=== PATIENT | female | born 1950 | race Caucasian/White ===

== ENCOUNTER 2020-06-15 10:40 | Emergency (ER) | payer MEDICARE, SELFPAY ==
--- NOTE | ~2020-06-15 | XR_ITS ---
EXAMINATION: XR chest 2V 06/15/2020 11:22 INDICATION: Wheezing. PROCEDURE: 2 view chest COMPARISON: 07/03/2017 FINDINGS: There is right lower lobe airspace disease with obscuration of the diaphragm posteriorly on the lateral view. The cardiomediastinal silhouette is within normal limits. There are no pleural ef fusions. There is no pneumothorax suspected. IMPRESSION: 1: Subtle right lower lobe airspace disease, atelectasis versus pneumonia. Reviewed, dictated and finalized at location A. L [facility]
[2020-06-15 11:00] VITALS: BP 141/60; PULSE 69; RESP 16; TEMP 36.5; O2SAT 98
--- NOTE | 2020-06-15 11:11 | ECG_ITS ---
Measurements Intervals [place] Rate: 65 P: 22 CO: 127 QRS: 6 QRSD: 84 T: 8 QT: 379 QTc: 396 Interpretive Statements SINUS RHYTHM BORDERLINE T WAVE ABNORMALITY- INFERIOR LEADS BASELINE ARTIFACT- II, III, AVF BORDERLINE ECG Electronically Signed On 06-15-2020 16:33:23 [employer]OT[employer] TENDER by Baljeet Velasco D.O.
--- NOTE | 2020-06-15 11:12 | ED.GENADULT ---
HPI - General Adult General Chief complaint: Upper Respiratory Infection Stated complaint: chocked on food now lungs hurt Source: patient Mode of arrival: ambulatory Limitations: no limitations History of Present Illness HPI narrative: Patient presents for evaluation of chest pain. She indicates that she was eating vegetables 2 nights ago, when she began to choke. She states eventually she was able to swallow the vegetables. However she has noted some discomfort in her throat and chest since that time. Pain progressively worsened yesterday. She states she is a sharp pain in the right anterolateral aspect of her neck, particularly with deep inspiration. She rates his pain as 8 on a scale of 1-10. She also has pleuritic type of chest pain bilaterally, also noted with inspiration. She denies any shortness of breath but has had a productive cough of clear sputum. Both she and her tested positive for Covid back in May. She states that they both received notifications in mid-May allowing them to resume their normal activities, no longer requiring quarantine. Related Data Home Medications Medication Instructions Recorded Confirmed alendronate [Fosamax] mg PO 06/15/20 Allergies Allergy/AdvReac Type Severity Reaction Status Date / Time No Known Allergies Allergy Unknown Unverified 10/12/18 17:41 Review of Systems Review of Systems: Narrative: CONSTITUTIONAL: Denies fever, chills, or sweats. EYES: Denies visual changes, redness, or discharge. ENT: Denies rhinorrhea, congestion, or otalgia. Reports sore throat, particularly with inspiration. CARDIOVASCULAR: Reports chest pain. Denies palpitations, or edema. RESPIRATORY: Denies cough or dyspnea. GASTROINTESTINAL: Denies abdominal pain, nausea, vomiting, or diarrhea. GENITOURINARY: Denies dysuria or hematuria. SKIN: Denies rash or itching. MUSCULOSKELETAL: Denies back pain, joint pain, or myalgia. NEUROLOGIC: Denies headache, numbness, dizziness, or weakness. PSYCHIATRIC: Denies anxiety or depression. [facility] Past Medical History Medical History History of ectopic Osteoporosis Surgical History Surgical History H/O oophorectomy H/O tubal ligation Family History Family History Father Atrial fibrillation CKD (chronic kidney disease) Mother Hypertension Social History Social History Smoking status: Former smoker Alcohol intake: current Drinks per week: 7 Alcohol use details: 1 glass of wine per night Substance use: never Living arrangements: with family Gender identity (if verbalized by the patient): Female Sexual Orientation (if Verbalized by the Patient): Straight or Heterosexual Exam Narrative: Exam Narrative: GENERAL: Well-appearing, well-nourished, and in no acute distress. HEAD: Normocephalic, atraumatic. EYES: PERRLA and EOMI. ENT: Nares clear, no rhinorrhea or epistaxis. Mucous membranes moist. Oropharynx without tonsillar hypertrophy exudate or other lesions. Bilateral TMs pearly barron nonbulging NECK: Supple. No adenopathy or masses. No carotid bruits or JVD CHEST:Inspiratory wheezing in RLL. No other adventitious lung sounds present in other jung. No respiratory distress. No wheezes rales or rhonchi HEART: Regular rate and rhythm. No murmur heard. Normal peripheral pulses. ABDOMEN: Soft, nontender, nondistended, normal active bowel sounds. EXTREMITIES: Normal range of motion. No edema. SKIN: Warm, dry, no rash. NEURO: No focal deficits. Alert and oriented x3. PSYCH: Normal mood and affect. Course Course Emergency Course: This is a 70-year-old female who presents with cough and chest pain after recently choking on some vegetables. Her saturations were normal.
--- NOTE | 2020-06-15 11:25 | PC.NURSE ---
ECG and CXR complete
== END 2020-06-15 12:24 | disposition home or self-care (01) ==
PROVIDERS: Emergency Provider Nurse Practitioner
DX: J69.0 Pneumonitis due to inhalation of food and vomit (principal); Z87.891 Personal history of nicotine dependence; M81.0 Age-related osteoporosis without current pathological fracture; Z86.16 Personal history of COVID-19
CPT/HCPCS: 71046; 93005; 99213; G0463

== ENCOUNTER 2021-09-17 17:15 | Emergency (ER) | payer MEDICARE, SELFPAY ==
--- NOTE | ~2021-09-17 | XR_ITS ---
XR wrist RT min 3V DATE: 09/17/2021 17:38 INDICATION: Fall on hyperextended wrist on 09/17/2021. Lateral wrist pain. TECHNIQUE: 4 views COMPARISON: None FINDINGS: There is osteoarthritic change at the radiocarpal, triscaphe and first carpometacarpal join ts in addition to the second metacarpophalangeal and first and second distal fifth interphalangeal sylvia ints. IMPRESSION: Polyarticular osteoarthritis No recent fracture or dislocation is detected Reviewed, dictated and finalized at location A.
[2021-09-17 17:20] VITALS: BP 137/65; PULSE 66; RESP 20; TEMP 36.6; O2SAT 98
--- NOTE | 2021-09-17 17:22 | ED.UPPEXIN ---
HPI - Extremity Injury (Upper) General Chief Complaint: Extremity Injury, Upper Stated Complaint: right wrist injury Time Seen by Provider: 09/17/21 17:34 Source: patient and RN notes reviewed Mode of arrival: ambulatory Limitations: no limitations History of Present Illness HPI narrative: 71-year-old female presents with concern for right wrist injury. Reports 230s afternoon she was doing yard work and tripped and fell forward catching herself with her wrist. Reports since then she has had radial wrist pain, worsening pain with palpation and range of motion. She reports she used ice right away and ibuprofen. She denies broken skin, redness, rash, bruising. She denies decreased station, strength and range of motion of the digits. MD complaint: injury to: right and wrist Related Data Home Medications Medication Instructions Recorded Confirmed No Home Medications 09/17/21 09/17/21 Allergies Allergy/AdvReac Type Severity Reaction Status Date / Time No Known Allergies Allergy Unknown Unverified 10/12/18 17:41 Review of Systems Review of Systems: CONSTITUTIONAL: Denies malaise, chills, sweats, or fever. CARDIOVASCULAR: Denies chest pain, palpitations, or edema. RESPIRATORY: Denies cough or dyspnea. SKIN: Denies rash or itching, bruising, redness MUSCULOSKELETAL: Reports right wrist swelling, pain NEUROLOGIC: Denies numbness, weakness All systems reviewed & are unremarkable except as noted in HPI and below PMFSH Past Medical History Medical History History of ectopic Osteoporosis Surgical History Surgical History H/O oophorectomy H/O tubal ligation Family History Family History Father Atrial fibrillation CKD (chronic kidney disease) Mother Hypertension Social History Social History Smoking status: Former smoker Alcohol intake: current Drinks per week: 7 Alcohol use details: 1 glass of wine per night Substance use: never Gender identity (if verbalized by the patient): Female Sexual Orientation (if Verbalized by the Patient): Straight or Heterosexual Comments At time of signature, agree with nursing past medical, surgical, social and family history. There is no relevant family history pertinent to the presenting complaint Exam Narrative: GENERAL: Well-appearing, well-nourished, and in no acute distress. HEAD: Normocephalic, atraumatic. EYES: PERRLA, conjunctivae clear NECK: Supple. CHEST: Speaks in full sentences. No respiratory distress. HEART: Regular rate and rhythm. Normal and equal peripheral pulses. EXTREMITIES: Right wrist, hand, digits have normal strength and sensation, normal range of motion. No edema or ecchymosis. 5/5 strength with digit flexion and extension. Normal sensation with sensitivity to light touch and pain. Radial tenderness. No open wounds, no skin tenting, no devitalized tissue or atrophy, no trophic changes, no obvious deformity, alignment normal, nearby joints and structures intact. Distal pulses palpable and equal bilaterally, skin warm, dry, pink. Capillary refill less than 3 seconds. SKIN: Warm, dry, no rash. NEURO: Alert and oriented x3. PSYCH: Normal mood and affect Course Course Emergency Course: Patient is aware of diagnosis, understands and agrees to treatment plan. Anticipatory guidance given. Patient agrees to follow-up as directed and is aware of reasons to seek care at the emergency department. Portions of this record may have been created with voice recognition software Level of Care: Express Care Visit Vital Signs Vital signs: Reviewed. MDM - Extremity Injury (Upper) MDM Narrative Medical decision making narrative: Patients injury and pain is consistent with musculoskeletal etiology. No sign
== END 2021-09-17 18:05 | disposition home or self-care (01) ==
PROVIDERS: Emergency Provider Nurse Practitioner
DX: S63.501A Unspecified sprain of right wrist, initial encounter (principal); W01.0XXA Fall on same level from slipping, tripping and stumbling without subsequent striking against object, initial encounter; M81.0 Age-related osteoporosis without current pathological fracture; Z87.891 Personal history of nicotine dependence
CPT/HCPCS: 73110; 99213; G0463

== ENCOUNTER 2025-02-28 11:49 | Emergency (ER) | payer MEDICARE, SELFPAY ==
[2025-02-28 12:00] VITALS: BP 141/68; PULSE 72; RESP 20; TEMP 37; O2SAT 98
--- NOTE | 2025-02-28 12:48 | ED_ITS ---
HPI - URI/Sore Throat General Chief Complaint: Upper Respiratory Infection Stated Complaint: sore throat Time Seen by Provider: 02/28/25 12:35 Source: patient, RN notes reviewed and old records reviewed Mode of arrival: ambulatory Limitations: no limitations History of Present Illness HPI Narrative: 74 year old female who presents to [facility] care with complaints of one week duration of sore throat described as burning. Patient reports that she has been taking NyQuil and also Claritin for her symptoms without resolution. Patient denies any cough or any known fevers, reports some sinus congetion with drainage. MD elicited complaint: sore throat, rhinorrhea and nasal congestion Pertinent past history: seasonal allergies Onset (ago): week(s) (1) Pain scale (0-10): 4 Description of mucous: clear Able to tolerate fluids by mouth: Yes Treatments prior to arrival: other (NyQuil and Claritin) Related Data Allergies Allergy/AdvReac Type Severity Reaction Status Date / Time No Known Allergies Allergy Unknown Verified 02/28/25 12:58 Review of Systems Review of Systems: CONSTITUTIONAL: Denies malaise, chills, sweats, or fever. EYES: Denies visual changes, redness, or discharge. ENT: Reports rhinorrhea, congestion, sinus pain,no otalgia and positive sore throat. CARDIOVASCULAR: Denies chest pain, palpitations, or edema. RESPIRATORY: Reports no cough.? Denies dyspnea. GASTROINTESTINAL: Denies abdominal pain, nausea, vomiting, diarrhea SKIN: Denies rash or itching. MUSCULOSKELETAL: Denies myalgia. NEUROLOGIC: Denies headache. All systems reviewed & are unremarkable except as noted in HPI and below PMFSH Past Medical History Medical History (Updated 03/01/25 @ 14:09 by Maggie Ramirez NP) Hx of migraines Eczema Psoriasis Arthritis UTI (urinary tract infection) GERD (gastroesophageal reflux disease) History of ectopic Osteoporosis Surgical History Surgical History (Updated 03/01/25 @ 14:08 by Maggie Ramirez NP) History of cataract surgery H/O oophorectomy H/O tubal ligation Family History Family History Father Atrial fibrillation CKD (chronic kidney disease) Mother Hypertension Social History Social History (Updated 03/01/25 @ 14:08 by Maggie Ramirez NP) Smoking status: Former smoker Additional smoking assessment comments: quit 1986 Alcohol intake: current Drinks per week: 7 Alcohol use details: 1 glass of wine per night Substance use: never Living arrangements: with family Gender identity (if verbalized by the patient): Female Sexual Orientation (if Verbalized by the Patient): Straight or Heterosexual Comments At time of signature, agree with nursing past medical, surgical, social and family history. There is no relevant family history pertinent to the presenting complaint Exam Narrative: GENERAL: Well-appearing, well-nourished, and in no acute distress. HEAD: Normocephalic EYES: PERRLA, conjunctivae clear ENT: Nares clear, turbinates edematous and erythematous, clear discharge. Mucous membranes moist. TM pearly barron with dull light reflex bilaterally; no tragal tenderness. Oropharynx erythematous without lesions. Tonsils not enlarged and without exudate, no drooling, no hoarseness, no trismus, uvula midline.post nasal drainage NECK: Supple. No lymphadenopathy CHEST: Clear to auscultation, breath sounds equal. No wheezing, rhonchi, rales, or stridor. No respiratory distress, speaks in full sentences.no cough noted SAO2 98% on room air HEART: Regular rate and rhythm. No murmur heard. SKIN: Warm, dry, no rash. NEURO: Alert and oriented x3. PSYCH: Normal mood and affect Course Course Emergency Course: Patient is aware of diagnosis, understands and agrees to treatment plan.? Anticipatory guidance given.? Patient agrees to follow-up as directed and is aware of reasons to seek care at the emergency department. Portions of this record may have been created with voice recognition software Level of Care: Express Care Visit Vital Signs Vital signs: Vital Signs Temperature 37.0 C 02/28/25 12:00 Pulse Rate 72 02/28/25 12:00 Respiratory Rate 20 02/28/25 12:00 Blood Pressure 141/68 H 02/28/25 12:00 Pulse Oximetry 98 02/28/25 12:00 Oxygen Delivery Room Air 02/28/25 12:00 Temperature 37.0 C 02/28/25 12:00 Pulse Rate 72 02/28/25 12:00 Respiratory Rate 20 02/28/25 12:00 Blood Pressure 141/68 H 02/28/25 12:00 Pulse Oximetry 98 02/28/25 12:00 Oxygen Delivery Room Air 02/28/25 12:00 Reviewed MDM - URI/Sore Throat MDM Narrative Medical decision making narrative: Differential diagnosis considered: Sawyer virus, strep pharyngitis, allergic rhinitis, upper respiratory tract infection, sinusitis, rhinosinusitis, nasopharyngitis. viral pharyngitis, otitis media, otitis externa, pneumonia, bronchitis, viral cough syndrome, viral syndrome, and influenza.? Exam findings show no acute concerns or changes; patient is non-toxic appearing and is in no distress.? Patient is appropriate for outpatient treatment and follow-up. Differential Diagnosis Differential diagnosis: Likely upper respiratory infection, viral infection, pharyngitis and other (strep pharyngitis) Medical Records Attestation: I reviewed the patient's medical records. Lab Data Attestation: I reviewed the patient's lab results. Lab results narrative: strep screen negative, culture sent Labs: Lab Results 02/28/25 Range/Units 12:12 POC Grp A Strep Screen Negative (Negative) reviewed Critical Care Time Critical Care Time Critical Care Time: No Discharge Plan Discharge Clinical Impression: URI (upper respiratory infection) Qualifiers: URI type: unspecified URI Qualified Code(s): J06.9 - Acute upper respiratory infection, unspecified Pharyngitis Qualifiers: Pharyngitis/tonsillitis etiology: unspecified etiology Qualified Code(s): J02.9 - Acute pharyngitis, unspecified Patient Disposition: Home Condition: Stable Instructions: Pharyngitis (ED), Upper Respiratory Infection (ED) Additional Instructions: Increase fluids especially juices and water [id number] cough and cold medicine of your choice for your symptoms Steroids as prescribed take as prescribed with food Tylenol or ibuprofen package instructions heat to the face 20-30 minutes 4-6 times a day for pain Salt water gargles, throat lozenges or throat sprays as desired Your strep test today was negative. A throat culture will be sent to the laboratory for further testing. IF the test is positive, you will receive a phone call within 48 hours and an appropriate antibiotic will be initiated at that time. Patient Language: Peruvian Prescriptions: New methylprednisolone [Medrol (Cliff)] 4 mg tablets,dose pack See Rx Instructions .ROUTE .COMPLEX Qty: 21 0RF Rx Instructions: orally per package directions take with food Follow-up/Referrals: PHYSICIAN NOT ON STAFF,NONSTAFF [Primary Care Provider] Time of Disposition: 13:04 Quality Jermaine Coma Scale Eyes: Open Verbal: Oriented and Alert Motor: Follows Commands Jermaine Coma Total Score: 15
[2025-02-28 13:09] LABS: EDSTREPNEGPOS1 Negative (Negative)
--- OUTSIDE RECORDS SUMMARY | 2025-02-28 14:24 | XMS_ITS | Clinical Summary ---
Author Organization [facility] Address [address] [place] [address] Care Team Providers Care Training Coordinator Name Role Phone Viky Melgar MD Primary Care Provider [phone] Rosalia Najera Unavailable Unavailable Allergies No known active allergies Medications cetirizine (ZyrTEC) 10 mg tablet Take one by mouth one time per day as needed 30 2 11/14/2006 Active calcium-vitamin D3-vitamin K 500-100-40 mg-unit-mcg tablet,chewable Take by mouth. Active multivit-min/jose e david fumarate (MULTI VITAMIN ORAL) 06/06/2022 Active clobetasoL (TEMOVATE) 0.05 % external solutionIndicati ons:Dermatosis of the Scalp Apply to AA on scalp daily 50 mL 11 01/18/2024 Active valACYclovir (VALTREX) 500 mg tabletIndication s:Herpes Take 1 tablet (500 mg total) by mouth 2 (two) times a day 60 tablet 1 05/08/2024 Active Active Problems Problem Noted Date Diagnosed Date Esophageal dysphagia 06/25/2021 Overview (06/25/2021): Added automatically from request for surgery [id number] Nuclear sclerotic cataract 04/17/2020 Pain in both lower extremities 04/17/2020 Assessment & Plan (04/17/2020 3:11 PM EXTRUDER OPERATOR): A distribution pain in both of her legs with not being compatible with a stress fracture. She had however reduce her activities of the symptoms have abated. There is no clear radiographic findings of stress fractures currently. If her symptoms return in a more pronounced fashion follow-up films are workup may be indicated. Patient is also likely favoring how she walks due to the chronic pain in the plantar aspect of her right great toe. Evaluation by our foot ankle specialist may be helpful. Acquired hallux valgus of right foot 04/17/2020 Assessment & Plan (04/17/2020 3:12 PM EXTRUDER OPERATOR): Patient has a more pronounced hallux valgus deformity of the right foot than she does on the left. This may change distress pattern at the MTP joint. A have any point tenderness but clearly has had chronic symptoms. Evaluation by a employee training specialist would likely be helpful. Posterior tibialis tendon insufficiency 04/17/20 Assessment & Plan (04/17/2020 3:13 PM EXTRUDER OPERATOR): Patient has dynamic pes planus and likely developing posterior tibial insufficiency. She was encouraged to continue using orthotics and/or well-appearing well made shoes with a good built-in arch. Hyperlipidemia 04/03/2020 Osteoarthritis 12/20/2018 Keratosis, senilis 01/29/2015 Rosacea 03/22/2014 Actinic keratosis 03/22/2014 Chronic eczema of hand 03/22/2014 Migraine with aura 12/18/2013 [facility]09[facility]09/2016[facility] Atopic rhinitis 10/20/2013 Overview (09/10/2016): ALLERGIC RHINITIS NOS Resolved Problems Problem Noted Date Diagnosed Date Resolved Date Psoriatic arthritis 12/20/2018 12/21/19 19 Dizziness 07/29/2015 07/10/2018 Overview (09/09/2016): Dizziness Pain of toe 04/01/2014 07/10/2018 Ganglion cyst 03/22/2014 07/10/2018 Pain of foot 02/11/2014 07/10/2018 Encounters Date Type Department Care Team Description 01/23/2025 10:00 AM CDT Office Visit [facility] Medicine Dermatology [address] [facility] [address] [place] [phone] Katerina Bolanos MD Seborrheic keratosis (Primary Dx); Benign nevus; Dermatofibroma; Diffuse photodamage of skin; Insect bite of left lower leg, initial encounter 12/01/2024 10:26 AM CDT - 12/01/2024 11:59 PM CDT Hospital Encounter [facility] [address] [place] [address] Screening mammogram, encounter for Discharge Disposition: Discharge to home or self care from Last 3 Months Immunizations Immunization Administration Dates Next Due Influenza, Quadrivalent, Spl it, Intramuscular 03/06/2015 Influenza, Split 03/31/2011,03/24/2010 Influenza, Trivalent, High D ose, Split, Preservative Free, Intramuscular 04/02/2017,03/10/2016,03/06/2014 Influenza, Unspecified 02/17/2022,2020,02/28/2019,03/22 Moderna SARS-CoV-2 Monovalen t Vaccination (12+ YRS) 02/17/2022,04/01/2021 Pneumococcal Conjugate PCV 13 12/20/2017 Pneumococcal Polysaccharide PPV23 04/03/2020,06/2013 ZOSTER LIVE 06/09/2017,04/02/2014 ZOSTER Recombinant 01/14/2019,11/03/2018 Surgical History Surgery Date Site/Laterality Comments TUBAL LIGATION 06/06/1987 - 06/05/1988 left tubal ligation (s/p RS 1985 for ectopic ) OTHER SURGICAL HISTORY 06/06/2006 - 06/05/2007 Arthroscopy knee L KNEE ARTHROPLASTY ECTOPIC SURGERY 06/06/1985 - 06/05/1986 Right Right salpingectomy FOOT NEUROMA SURGERY Right CATARACT EXTRACTION Medical History Medical History Date Comments History of multiple allergies Al lergies Hx Other Medical Headache, migra ine Migraines Osteopenia Vertigo Eczema Smoking previous Dysphagia Family History Medical History Relation Name Comments Prostate cancer Brother 1 Rheum arthritis Brother 1 Other Brother 2 Alive and well; Prostate cancer Brother 2 Prostate cancer Brother 3 Cancer, pros claudio; Coronary artery disease Father Nicole nary artery disease; Osteoarthritis Father Prostate cancer Father Cancer -pros claudio; Sensorineural hearing loss Father S ensorineural hearing loss; Alzheimer's disease Mother Alzheime r's Disease; Osteoarthritis Mother Sensorineural hearing loss Mother S ensorineural hearing loss; Breast cancer Neg Hx Ovarian cancer Neg Hx Thyroid cancer Neg Hx Relation Name Status Comments Brother 1 Alive Brother 2 Alive Brother 3 Father Mother (Age 99) Social History Tobacco Use Types Packs/Day Years Used Date Smoking Tobacco: Former Cigarettes 1 20 Smokeless Tobacco: Former Quit: 12/04/1984 Tobacco Cessation:Counseling Given: Not Answered Comments:quit 30 years ago Alcohol Use Standard Drinks/Week Comments Yes 7 (1 standard drink = 0.6 oz pur e alcohol) weekly AUDIT-C Answer Date Recorded Q1: How often do you have a drink containing alc ohol? 2-3 times a week 11/30/2023 Q2: How many drinks containi ng alcohol do you have on a typical day when you are drinking? 1 or 2 11/30/2023 Q3: How often do you have si x or more drinks on one occasion? 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 Not on file Not on file Not on file Obstetrics History Para Term AB IAB SAB Ectopic Multiple Livin g Live Births 4 2 2 0 2 1 0 1 0 2 2 Date Outcome GA Total Labor Labor/2nd/3rd Weight Sex Type Anes PTL Tri A1 A5 Name Clin 1970 Term F Vag-S pont Living 1973 IAB D&C 1986 Ectopic 1987 Term M Vag-S pont Living Comments Gave 1st baby up for adoptio n. Last Filed Vital Signs Vital Sign Reading Time Taken Comments Blood Pressure 130/70 11/30/2023 2:47 PM CDT Pulse 69 11/30/2023 2:47 PM CDT Temperature 36.9 C (98.4 F) 11/30/2023 2:47 PM CDT Respiratory Rate 20 11/30/2023 2:47 PM CDT Oxygen Saturation 97% 11/30/2023 2:47 PM CDT Inhaled Oxygen Concentration - - Weight 63.5 kg (140 lb) 12/01/2024 10:32 AM CDT Height 154.9 cm (5' 1) 12/01/2024 10:32 AM CDT Body Mass Index 26.45 12/01/2024 10:32 AM CDT Plan of Treatment Health Maintenance Due Date Last Done Comments DTaP/Tdap/Td Vaccine (1 - Tdap) 1960 Hepatitis B Screening 1968 Osteoporosis Screening-Bone Density Scan 05/19/2023 05/19/2021, 02/27/2019, 12/22/2016 Colon Cancer Screening-Colonoscopy 10/17/2024 10/17/2014 Depression Screening 11/29/2024 11/30/2023, 10/06/2022, 04/07/2022, Additional history exists Fall Risk Assessment 11/29/2024 11/30/2023, 10/06/2022, 04/07/2022, Additional history exists Well Visit 65+ 11/29/2024 11/30/2023, 07/2021, 04/06/2021, Additional history exists Covid-19 Vaccine (2024-2 6 season) 2025 02/17/2022, 04/01/2021 Influenza Vaccine (#1) 2025 , 03/16/2021, 03/01/2019, Additional history exists Colon Cancer Screening-CT Colonography Discontinued 10/17/2014 Colon Cancer Screening-DNA Stool Discontinued 10/18/19 15 Colon Cancer Screening-FIT Discontinued 10/17/2014 Colon Cancer Screening-Sigmoidoscopy Discontinued 10/17/2014 Zoster Vaccine Completed 01/14/2019, 10/06, 02/02/2018, Additional history exists Pneumococcal vaccine 65+ Completed 020, 12/20/2017, 04/07/2016, Additional history exists Hepatitis C Screening Completed 04/08/2020 Breast Cancer Screening-Mammogram Discontinued 12/01/2024, 09/10/2023, 07/15/2022, Additional history exists Procedures Procedure Name Priority Date/Time Associated Diagnosis Comments SCREENING MAMMOGRAM BILATERAL W HARRY Schedule Routine, Read Routine (OP Routine) 12/01/2024 10:36 AM CDT Screening mammogram, encounter for DEXA AXIAL SKELETON BONE DENSITY 1 OR MORE SITES Schedule Routine, Read Routine (OP Routine) 05/19/2021 9:27 AM EXTRUDER OPERATOR Asymptomatic menopause HEPATITIS C ANTIBODY Routine 04/08/2020 9:33 AM EXTRUDER OPERATOR COLONOSCOPY Routine 10/17/2014 from Last 3 Months or Most Recently Relevant to Health Maintenance Results * Screening Mammogram Bilateral W Harry (12/01/2024 10:36 AM CDT) Anatomical Region Laterality Modality Breast Bilateral Mammography Impressions 12/03/2024 8:19 PM CDT Bilateral No evidence of malignancy in either breast. OVERALL BI-RADS FINAL ASSESSMENT: 1 - Negative RECOMMENDATION: Recommend bilateral annual screening mammography. Narrative 12/03/2024 8:19 PM CDT EXAMINATION: Screening Mammogram Bilateral W Harry: 12/01/2024 COMPARISON: Relevent prior studies available at the time of interpretation were reviewed, including the most recent mammogram on: 09/10/2023. TECHNIQUE: Mammography was performed with 2D and digital breast tomosynthesis (DBT) images. CAD was utilized. BREAST PARENCHYMAL COMPOSITION: There are scattered areas of fibroglandular density. FINDINGS: Bilateral There is no suspicious mass, calcification, or architectural distortion in either breast. us Self Screening Mammogram IMG MAMMO PROCEDURES Fi nal Result * Dexa Axial Skeleton Bone Density 1 or 2 Site (05/19/2021 9:27 AM EXTRUDER OPERATOR) Anatomical Region Laterality Modality Body N/A Other 05/19/2021 9:29 AM EXTRUDER OPERATOR Narrative 05/19/2021 9:31 AM EXTRUDER OPERATOR EXAM DESCRIPTION: DEXA AXIAL SKELETON BONE DENSITY 1 OR MORE SITES REASON FOR STUDY: Post-menopausal female, screening for osteoporosis. Director Of Nurses Registry/Model: NEXAGE (S/N [id number]) CLINICAL INFORMATION: Current height: 61 inches Maximum height: 62.5 inches Weight: 144 pounds Risk factors: Parental history of a hip fracture COMPARISON: 02/27/2019 FINDINGS: AP LUMBAR SPINE L1-L4: Total BMD is 1.089 g/cm2 T-score is 0.4 Most recent prior BMD was 1.102 g/cm2 There has been a 1.2% decrease in BMD which is not statistically significant. LEFT HIP: Current Total BMD is 0.904 g/cm2 T-score is -0.3 Most recent prior Total BMD was 0.854 g/cm2 There has been a 5.8% increase in BMD which is statistically significant. Current femoral neck BMD is 0.657 g/cm2 T-score is -1.7 IMPRESSION: 1. Low bone mass by WHO criteria. 2. The WHO fracture risk assessment tool (FRAX) indicates that the 10 year risk for a major osteoporotic fracture is 18% and the 10 year risk for a hip fracture is 5.8%. The FRAX tool has not been validated in patients currently or previously treated with pharmacotherapy for osteoporosis. In such patients, clinical judgement must be exercised in interpreting FRAX scores as the fracture risk may be overestimated. REFERENCE: Bone mineral density: Normal (T-score above or = -1.0) Low bone mass (T-score between -1.0 and -2.5) replaces the previously used term osteopenia Osteoporosis (T-score = or below -2.5) Medical evaluation for secondary causes of low bone mineral density may be appropriate. FRAX is a World Health Organization validated fracture risk assessment tool that calculates a person's 10 year probability of a major osteoporosis related fracture and hip fracture. According to the National Osteoporosis Foundation guidelines, postmenopausal women and men age 50 or older with low bone mass and a 10 year probability of a major osteoporosis related fracture = or greater than 20% or a 10 year probability of a hip fracture = or greater than 3% should be considered for treatment. For further information, including treatment recommendations, please refer to the 2013 ISCD Official Positions (http://www.iscd.org) and the NOF's Clinician's Guide to Prevention and Treatment of Osteoporosis (http://www.nof.org/professionals/clinical-guidelines) THIS IS AN ELECTRONICALLY VERIFIED FINAL REPORT 05/19/2021 9:31 AM - Electronically signed by Cipriano Millard M.D. AB: Report ID: [id number] Reading Location: [id number] Procedure Note Cipriano Millard MD - 05/19/2021 EXAM DESCRIPTION: DEXA AXIAL SKELETON BONE DENSITY 1 OR MORE SITES REASON FOR STUDY: Post-menopausal female, screening for osteoporosis. Director Of Nurses Registry/Model: [email or web address] SL (S/N [id number]) CLINICAL INFORMATION: Current height: 61 inches Maximum height: 62.5 inches Weight: 144 pounds Risk factors: Parental history of a hip fracture COMPARISON: 02/27/2019 FINDINGS: AP LUMBAR SPINE L1-L4: Total BMD is 1.089 g/cm2 T-score is 0.4 Most recent prior BMD was 1.102 g/cm2 There has been a 1.2% decrease in BMD which is not statisticallysignificant. LEFT HIP: Current Total BMD is 0.904 g/cm2 T-score is -0.3 Most recent prior Total BMD was 0.854 g/cm2 There has been a 5.8% increase in BMD which is statisticallysignificant. Current femoral neck BMD is 0.657 g/cm2 T-score is -1.7 IMPRESSION: 1. Low bone mass by WHO criteria. 2. The WHO fracture risk assessment tool (FRAX) indicates that the 10 year risk for a major osteoporotic fracture is 18% and the 10 year risk for ahip fracture is 5.8%. The FRAX tool has not been validated in patients currently or previously treated with pharmacotherapy for osteoporosis. In such patients, clinical judgement must be exercised in interpreting FRAX scores as the fracturerisk may be overestimated. REFERENCE: Bone mineral density: Normal (T-score above or = -1.0) Low bone mass (T-score between -1.0 and -2.5) replaces thepreviously used term osteopenia Osteoporosis (T-score = or below -2.5) Medical evaluation for secondary causes of low bone mineral density may be appropriate. FRAX is a World Health Organization validated fracture risk assessmenttool that calculates a person's 10 year probability of a major osteoporosisrelated fracture and hip fracture. According to the National OsteoporosisFoundation guidelines, postmenopausal women and men age 50 or older with low bonemass and a 10 year probability of a major osteoporosis related fracture = or greater than 20% or a 10 year probability of a hip fracture = or greaterthan 3% should be considered for treatment. For further information, including treatment recommendations, please referto the 2013 ISCD Official Positions (http://www.iscd.org) and the NOF's Clinician's Guide to Prevention and Treatment of Osteoporosis (http://www.nof.org/professionals/clinical-guidelines) THIS IS AN ELECTRONICALLY VERIFIED FINAL REPORT 05/19/2021 9:31 AM - Electronically signed by Cipriano Millard M.D. AB: AB Report ID: [id number] Reading Location: [place] [address] [place] Viky Melgar MD IMG DXA PROCEDURES Final Res ult * Hepatitis C antibody (04/08/2020 9:33 AM EXTRUDER OPERATOR) Hep C Ab NON-REACTI VE NON-REACT KYLIE [facility] SIGNAL TO CUT-OFF 0.01 <1.00 [facility] Comment: HCV antibody was non-reactive. There is no laboratory evidence of HCV infection. In most cases, no further action is required. However, if recent HCV exposure is suspected, a test for HCV RNA (test code 20305) is suggested. For additional information please refer to http://education.Powerphotonic.Broken Buy/faq/UVD65o2 (This link is being provided for informational/ educational purposes only.) 04/08/2020 9:33 AM EXTRUDER OPERATOR 04/08/2020 9:35 AM EXTRUDER OPERATOR Narrative [facility] - 04/09/2020 11:51 AM EXTRUDER OPERATOR FASTING:YES AN UPDATE OR CORRECTION HAS BEEN MADE TO NAME FASTING: YES us Viky Melgar MD LAB MICROBIOLOGY - GENERAL O RDERABLES Final Result [facility] [id number] [address] [place] [phone] * Colonoscopy (10/17/2014) Anatomical Region Laterality Modality Other Historical Provider ENDOSCOPY PROCEDURES Marie l Result from Last 3 Months or Most Recently Relevant to Health Maintenance Insurance [facility] AETNA MEDICARE [facility] MEDICARE AETNA MEDICARE Advance Directives For more information, please contact: [phone] Documents on File Type Date Recorded Patient Supervisor Show Operations Expl anation ADVANCE DIRECTIVE 02/19/2019 Care Teams Training Coordinator Relationship Specialty Start Date End Date Viky Melgar MD [address] [place] [id number] PCP - General 07/24/15 Rosalia Najera [address] [place] [id number] Physical Therapist Physical Therapy 08/15/18
--- OUTSIDE RECORDS SUMMARY | 2025-02-28 14:24 | XMS_ITS | Encounter Summary ---
Author Organization [facility] Healthcare Address [address] [place] [address] Care Team Providers Care Roll Grinder Operator Name Role Phone Viky Melgar MD Primary Care Provider [phone] Rosalia Najera Unavailable Unavailable Encounter Details Date Type Department Care Team (Late st Contact Info) Description 05/08/2024 Telephone [facility] at [address] [phone] Viky Melgar MD [address] [place] [id number] Social History Tobacco Use Types Packs/Day Years Used Date Smoking Tobacco: Former Cigarettes 1 20 Smokeless Tobacco: Former Quit: 12/04/1984 Comments:quit 30 years ago Alcohol Use Standard [...] on file Legal Sex Female 11:46 PM BURGLAR ALARM SUPERINTENDENT Gender Identity Not on file Sexual Orientation Not on file Occupation Industry Job Start Date Job End Date 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 Not on file Not on file Not on file documented as of this encounter Ordered Prescriptions Prescription Sig Dispense Quantity Refills Last Filled Start Date End Date valACYclovir (VALTREX) 500 mg tabletIndications:H erpes Take 1 tablet (500 mg total) by mouth 2 (two) times a day 60 tablet 1 05/08/2024 documented in this encounter Miscellaneous Notes * Telephone Encounter - Maryanne Maloney LPN - 05/08/2024 5:09 PM BURGLAR ALARM SUPERINTENDENT LAR ALARM SUPERINTENDENT documented in this encounter Plan of Treatment Not on file documented as of this encounter Visit Diagnoses Diagnosis Herpes Herpes simplex without mention of complication documented in this encounter Discontinued Medications Medication Sig Discontinue Reason Start Date End Da te valACYclovir (VALTREX) 500 mg tabletIndications:Herpes Take 1 tablet (500 mg total) by mouth 2 (two) times a day Reorder 04/06/2021 05/08/2024 documented as of this encounter Care Teams Roll Grinder Operator Relationship Specialty Start Date End Date Viky Melgar MD [id number] [place] [address] PCP - General 07/24/15 Rosalia Najera [address] [place] [id number] Physical Therapist Physical Therapy 08/15/18 documented as of this encounter
--- OUTSIDE RECORDS SUMMARY | 2025-02-28 14:24 | XMS_ITS | Clinical Summary ---
Author Organization [facility] [employer] Address [address] [place] [address] Care Team Providers Care School Superintendent Name Role Phone Viky Melgar MD Primary Care Provider [phone] Source Comments [facility] [employer],non-owned Affiliates and Associated Physician Practices is amultiple site organization consisting of ambulatory clinics and hospital sitesin [place], [place], [place] and [place]. This disclosure is being madepursuant to the Care Everywhere program and may not contain all information available regarding this patient. Last updated 18.[facility] [employer] Allergies No known active allergies Medications * Be aware that medications may not be up to date on this document. Alwaysverify current medications with the patient. CALCIUM-VITAMIN D PO Take 1 tablet by mouth once daily Active ebk-aixn-vxqcdms jenna-codeine (FIORINAL/CODEIN E #3) 12-886-86-30 MG capsule Take 1 capsule by mouth as needed for Headache Active cetirizine (ZYRTEC) 10 MG tablet Take 10 mg by mouth once daily Active valACYclovir (VALTREX) 500 MG tablet Take 500 mg by mouth as needed Active Multiple Vitamin (MULTI-DAY VITAMINS PO) Take 1 tablet by mouth once daily Active meloxicam (MOBIC) 7.5 MG tabletIndication s:Sesamoiditis,S hin splint, unspecified laterality, initial encounter,[place]anta r fat pad atrophy of right foot,Prominent metatarsal head of right foot Take 1 tablet by mouth once daily as needed with food for Pain 30 tablet 1 0 Active alendronate (Fosamax) 70 MG tablet 3 Active Active Problems Problem Noted Date Diagnosed Date Esophageal dysphagia 06/25/2021 Overview (07/07/2022): Added automatically from request for surgery [id number] Acquired hallux valgus of right foot 04/17/2020 Overview (04/29/2020): Last Assessment & Plan: Patient has a more pronounced hallux valgus deformity of the right foot than she does on the left. This may change distress pattern at the MTP joint. A have any point tenderness but clearly has had chronic symptoms. Evaluation by a central communications specialist would likely be helpful. Pain in both lower extremities 04/17/2020 Overview (04/29/2020): Last Assessment & Plan: A distribution pain in both of her [...] our foot ankle specialist may be helpful. Posterior tibialis tendon insufficiency 04/17/20 Overview (04/29/2020): Last Assessment & Plan: Patient has dynamic pes planus and likely developing posterior tibial insufficiency. She was encouraged to continue using orthotics and/or well-appearing well made shoes with a good built-in arch. Hyperlipidemia 04/03/2020 Osteoarthrosis 12/20/2018 Keratosis, senilis 01/29/2015 Chronic eczema of hand 03/22/2014 Rosacea 03/22/2014 Actinic keratosis 03/22/2014 Migraine with aura 12/18/2013 Overview (01/12/2019): Overview: [facility] Atopic rhinitis 10/20/2013 Overview (01/12/2019): Overview: ALLERGIC RHINITIS NOS Nuclear sclerotic cataract of left eye Nuclear sclerotic cataract of right eye Immunizations Immunization Administration Dates Next Due INFLUENZA VACCINE, HIGH-DOSE , QUADR. (FLUZONE HIGH-DOSE QUADRIVALENT; 65Y+), 0.7 ML (HD-IIV4) 04/02/2017 Family History Medical History Relation Name Comments Cancer - Prostate Father Diabetes - Gestational Father Glaucoma Father Blindness Neg Hx Macular Degeneration Neg Hx Relation Name Status Comments Father Social History Tobacco Use Types Packs/Day Years Used Date Smoking Tobacco: Never Smokeless Tobacco: Never Alcohol Use Standard Drinks/Week Comments Yes 0 (1 standard drink = 0.6 oz pur e alcohol) social Comments Unknown Sex and Gender Information Value Date Recorded Sex Assigned at Not on file Legal Sex Female 2:40 PM CDT Gender Identity Not on file Sexual Orientation Not on file Last Filed Vital Signs Vital Sign Reading Time Taken Comments Blood Pressure 124/76 05/06/2020 3:25 PM [employer] Pulse 74 05/06/2020 3:25 PM [employer] Temperature 36.9 C (98.5 F) 02/21/2019 1:11 PM CDT Respiratory Rate 17 02/21/2019 1:30 PM CDT Oxygen Saturation 100% 02/21/2019 1:30 PM CDT Inhaled Oxygen Concentration - - Weight 63.5 kg (140 lb) 05/06/2020 3:25 PM [employer] Height 154.9 cm (5' 1) 05/06/2020 3:25 PM [employer] Body Mass Index 26.45 05/06/2020 3:25 PM [employer] Plan of Treatment Health Maintenance Due Date Last Done Comments BONE DENSITY TESTING 1950 COLOGUARD (AGES 45-75) - COLON CA SCREENING 1950 COLON MONITORING 1949 COLONOSCOPY - COLON CA SCREENING 1949 CT COLONOGRAPHY - COLON CA SCREENING 1950 Colorectal Cancer Screening 1950 FIT - COLON CA SCREENING 1949 FLEX SIG - COLON CA SCREENING 1949 LIPID TESTING 1950 DTAP/TDAP/TD VACCINES (1 - Tdap) 1968 PNEUMOCOCCAL VACCINE 50+ (1 of 1 - PCV) 1999 ZOSTER VACCINE (1 of 2) 1999 MAMMOGRAM 04/24/2022 04/24/2020, 02/27/2019 Respiratory Syncytial Virus (RSV) Vaccine Pt: or over 60 yrs (1 - 1-dose 75+ series) 2024 DEPRESSION SCREENING 06/06/2024 COVID-19 VACCINE (3 - 2024- season) 2025 02/17/2022, 04/01/2021 INFLUENZA VACCINE (#1) 2025 , 03/16/2021, 02/28/2019, Additional history exists HEPATITIS C SCREENING Completed 09/03/2015 HEPATITIS B VACCINE Aged Out No longe r eligible based on patient's age to complete this topic HIB VACCINE Aged Out No longer eligi ble based on patient's age to complete this topic HPV VACCINE Aged Out No longer eligi ble based on patient's age to complete this topic MENINGOCOCCAL (Group B) VACCINE SHARED DECISION-MAKING Aged Out No longer eligible based on patient's age to complete this topic MENINGOCOCCAL GROUPS A/C/Y/W VACCINE Aged Out No longer eligible based on patient's age to complete this topic Medical Devices Implanted Type Area Environmental Property Assessor Device Identifier Shelf Expiration Date Model / Serial / Lot Lens Iol Dioptr 12.5 - [id number] Implanted:Qty: 1 on 02/07/2019 by Luis Godinez MD at [facility] [employer] 04/05/2023 SA60WF.125 / [id number] / Lens Iol 0 D +13 Lilian Mod L Bcnvx Acrs - [id number] Implanted:Qty: 1 on 02/21/2019 by Luis Godinez MD at [facility] Right: Eye [employer] 11/02/2022 SA60WF.130 / [id number] / Procedures Procedure Name Priority Date/Time Associated Diagnosis Comments HEPATITIS C PCR PROGRESSIVE QL/QN Routine 09/03/2015 3:43 PM CDT from Last 3 Months or Most Recently Relevant to Health Maintenance Results * HEPATITIS C PCR PROGRESSIVE QL/QN (09/03/2015 3:43 PM CDT) Hepatitis C Antibody NON-REACTI VE NON-REACT KYLIE [facility] (U) Signal/Cutoff 0.02 <1.00 [facility] (SLU) Comment: Test [facility]formed at[facility] [address] [id number] OUMAR CALLE DO,MPH 09/03/2015 3:43 PM CDT 09/03/2015 3:45 PM CDT [facility] N[facility] - SEROLOGY ORDERABLES Joey jane Result - Final [facility] (U) [id number] from Last 3 Months or Most Recently Relevant to Health Maintenance Insurance COVENTRY MEDICARE [facility] Advance Directives Documents on File Type Date Recorded Patient Supervisor Grounds Expl anation Adv Directive/Living Will/POA 02/07/2019 NOTICE TO PRESTON ROSALES Care Teams School Superintendent Relationship Specialty Start Date End Date Viky Melgar MD [address] [facility] [address] [place] [id number] PCP - General Internal Medicine 04/02/17
--- OUTSIDE RECORDS SUMMARY | 2025-02-28 14:24 | XMS_ITS | Encounter Summary ---
Author Organization [facility] Healthcare Address [address] [place] [address] Care Team Providers Care Lightout Examiner Name Role Phone Viky Melgar MD Primary Care Provider [phone] Rosalia Najera Unavailable Unavailable Reason for Visit * Reason Onset Date Comments Scheduling Appointments 05/18/2021 reminder call for dexa. no answer. Encounter Details Date Type Department Care Team (Late st Contact Info) Description 05/18/2021 Telephone [facility] [address] [place] [address] Gracie Presley RT Scheduling Appointments (reminder call for dexa. no answer. ) Social History Tobacco Use Types Packs/Day Years Used Date Smoking Tobacco: Former Cigarettes 1 20 Smokeless Tobacco: Former Quit: 12/04/1984 Comments:quit 30 years ago Alcohol Use Standard Drinks/Week Comments Yes 7 (1 standard drink = 0.6 oz pur e alcohol) weekly AUDIT-C Answer Date Recorded Q1: How often do you have a drink containing alcohol? 4 or more times a week 04/06/2021 Q2: How many drinks containi ng alcohol do you have on a typical day when you are drinking? 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 Not on file Not on file Not on file documented as of this encounter Plan of Treatment Not on file documented as of this encounter Visit Diagnoses Not on filedocumented in this encounter Care Teams Lightout Examiner Relationship Specialty Start Date End Date Viky Melgar MD [address] [facility] [address] [address] [address] PCP - General 07/24/15 Rosalia Najera [address] [facility] [address] [address] Physical Therapist Physical Therapy 08/15/18 documented as of this encounter
== END 2025-02-28 13:05 | disposition home or self-care (01) ==
PROVIDERS: Emergency Provider Registered Nurse
DX: J06.9 Acute upper respiratory infection, unspecified (principal); J02.9 Acute pharyngitis, unspecified; M19.90 Unspecified osteoarthritis, unspecified site; K21.9 Gastro-esophageal reflux disease without esophagitis; M81.0 Age-related osteoporosis without current pathological fracture; L40.9 Psoriasis, unspecified; Z87.891 Personal history of nicotine dependence
CPT/HCPCS: 87081; 87880; 99213; G0463